=== PATIENT | female | born 1945 | race Caucasian/White ===

== ENCOUNTER → 2016-10-25 | Outpatient (CLI) | payer MEDICARE, BC ==
[~2016-10-25] MED LIST: ASPI-725 PO; ATEN-36 PO; CALC-587 PO; CETI10TA56 PO; FISH1CAP47 PO; HYDR-2164 PO; INUL2TAB2 PO; LEVO88TA41 PO; MULT-806 PO; POTA10CA32 PO; SIMV20TA89 PO; [UNRECOGNIZED DRUG - CODE] PO
[2016-10-25 11:27] LABS: BASOPHILS % (AUTO) 0.3 % (0-2); EOSINOPHILS # (AUTO) 0.2 T/MM3 (0-0.5); EOSINOPHILS % (AUTO) 2.5 % (0-4); HCT - HEMATOCRIT 43.3 % (36-46); HGB - HEMOGLOBIN 13.9 GM/DL (12-16); IMMATURE GRANULOCYTE # (AUTO) 0.02 T/MM3 (0.00-0.03); IMMATURE GRANULOCYTE % (AUTO) 0.2 % (0.0-0.5); LYMPHOCYTES # (AUTO) 3.2 T/MM3 (1-4.8); LYMPHOCYTES % (AUTO) 36.8 % (23-45); MEAN CORPUSCULAR HGB 28.7 UUG (26-34); MEAN CORPUSCULAR HGB CONC(MCHC 32.1 GM/DL (31-37); MEAN CORPUSCULAR VOLUME 89.3 UM3 (80-100); MEAN PLATELET VOLUME 10.2 UM3 (9.4-12.4); MONOCYTES # (AUTO) 0.9 T/MM3 (0-0.8); MONOCYTES % (AUTO) 10.5 % (0-9.0); NEUTROPHILS #(AUTO)-ABSOLUTE 4.3 T/MM3 (1.8-7.7); NEUTROPHILS % (AUTO) 49.7 % (33-66); RED BLOOD COUNT 4.85 M/MM3 (4.00-5.20); WBC - WHITE BLOOD COUNT 8.7 T/MM3 (4.5-11.0)
[2016-10-25 11:36] LABS: BLOOD, URINE NEGATIVE (NEGATIVE); COLOR,URINE YELLOW (YELLOW); LEUKOCYTE ESTERASE ,URINE TRACE (NEGATIVE); NITRITE,URINE NEGATIVE (NEGATIVE); UROBILINOGEN,URINE 0.2 EU/DL (NORMAL)
[2016-10-25 11:38] LABS: ALBUMIN 4.1 G/DL (3.5-5.0); ALBUMIN/GLOBULIN RATIO 1.3 RATIO (1.1-2.2); ALKALINE PHOSPHATASE 71 U/L (38-126); ALT (SGPT) 41 U/L (9-52); ANION GAP 14 MEQ/L (5-15); AST (SGOT) 31 U/L (14-36); BUN/CREATININE RATIO 33 RATIO (6-26); CALCIUM 10.2 MG/DL (8.4-10.2); CHLORIDE 106 MEQ/L (98-107); CO2 - CARBON DIOXIDE 24 MEQ/L (22-30); CREATININE 0.6 MG/DL (0.7-1.2); GLOMERULAR FILTRATION RATE 99; GLUCOSE 111 MG/DL (65-110); SODIUM 144 MEQ/L (134-144); TOTAL PROTEIN 7.3 G/DL (6.3-8.2); URIC ACID 7.4 MG/DL (2.5-7.5)
[2016-10-25 11:49] LABS: SQUAMOUS EPITHELIAL CELL,UR >50; WBC,URINE 20-30 /HPF (0-5)
[2016-10-25 11:50] LABS: BACTERIA,URINE 2+ (NEGATIVE); MUCUS,URINE PRESENT
[2016-10-25 12:17] LABS: THYROID STIM HORMONE-TSH 3.46 MIU/L (0.47-4.68)
[2016-10-25 14:21] LABS: HEMOGLOBIN A1C 6.1 % (6.1-7.9)
[2016-10-26 02:27] LABS: FREE T4 (FREE THYROXINE)-BATCH 1.47 NG/DL (0.78-2.19)
[2016-10-26 03:21] LABS: T3 FREE - BATCH 5.41 PG/ML (2.77-5.27)
[2016-10-27 00:51] LABS: RISK FACTOR 3.9 RATIO (0-4.0)
== END ==
LOC: LAB 11:02
PROVIDERS: ATTEND Family Medicine
DX: Z11.59 Encounter for screening for other viral diseases (principal); Z00.00 Encounter for general adult medical examination without abnormal findings; E03.9 Hypothyroidism, unspecified; E78.5 Hyperlipidemia, unspecified; I10 Essential (primary) hypertension; R73.9 Hyperglycemia, unspecified; R82.90 Unspecified abnormal findings in urine; R82.99 Other abnormal findings in urine
CPT/HCPCS: 36415; 80053; 80061; 81001; 83036; 84439; 84443; 84481; 84550; 85025; 86803; 87077; 87086; 87186

== ENCOUNTER → 2016-11-10 | Outpatient (CLI) | payer MEDICARE, BC | LOC: WC.BC 12:40 | DX: Z12.31 Encounter for screening mammogram for malignant neoplasm of breast (principal) | CPT/HCPCS: 77063; G0202 ==